=== PATIENT | female | born 1950 | race Two or more races ===

== ENCOUNTER 2018-10-25 06:10 | Outpatient (CLI) | payer OTHER | END 2018-10-25 06:20 | disposition home or self-care (01) | LOC: LAB 06:10 | DX: E11.65 Type 2 diabetes mellitus with hyperglycemia (principal); I10 Essential (primary) hypertension; E78.2 Mixed hyperlipidemia; E03.2 Hypothyroidism due to medicaments and other exogenous substances; N39.0 Urinary tract infection, site not specified ==

== ENCOUNTER 2018-11-26 08:03 | Outpatient (CLI) | payer OTHER | END 2018-11-26 08:07 | disposition home or self-care (01) | LOC: LAB 08:03 | DX: N39.0 Urinary tract infection, site not specified (principal) ==